=== PATIENT | male | born 1975 | race African-American/Black ===

== ENCOUNTER 2018-12-04 11:51 | Emergency (ER) | payer OTHER ==
[~2018-12-04] VITALS: Ht 180.3 cm; Wt 78.5 kg
--- NOTE | 2018-12-04 11:53 | NUR ---
PT BIBA BLS TO BED 5
[2018-12-04 11:55] VITALS: BP 150/103
--- NOTE | 2018-12-04 12:00 | NUR ---
43Y/M BIBA WITH C/O OF ANXIETY. PT STATES HE HAS BEEN OUT OF ANXIETY MEDICATION FOR 2 WKS. PT IS AAOX4, LAYING IN BED CALM AND RELAX AT THIS TIME, VSS, BED DOWN, BEDRAIL UP X 1, ER MD AWARE AND NOTIFIED OF PT STATUS. BS FIELD 117 ,BP FIELD 180/100 PMH: HTN,ANXIETY,SCHIZO RX: ZYPREXA,AMLODIPINE,ZOLOFT
--- NOTE | 2018-12-04 12:22 | NUR ---
Patient being evaluated by physician at bedside.
[2018-12-04] MEDS ORDERED: KETOROLAC 30 MG/ML VIAL IVP ONE (12:25)
[2018-12-04] MEDS ORDERED: NACL 0.9% 500 ML IV ONE (12:25)
--- NOTE | 2018-12-04 12:34 | NUR ---
LAB AT BEDSIDE
[2018-12-04 12:59] LABS: BASOPHILS % (AUTO) 0.6 % (0.0-2.0); EOSINOPHILS % (AUTO) 0.5 % (0.0-4.0); HEMATOCRIT 39.2 % (36-52); HEMOGLOBIN 12.6 g/dL (12.0-18.0); LYMPHOCYTES % (AUTO) 18.7 % (20.5-51.1); MEAN CORPUSCULAR HEMOGLOBIN 27 pg (27-31); MEAN CORPUSCULAR HGB CONC 32 g/dL (33-37); MEAN CORPUSCULAR VOLUME 83.9 fL (80-94); MONOCYTES # (AUTO) 0.6 K/uL (0.8-1.0); MONOCYTES % (AUTO) 11.1 % (1.7-9.3); NEUTROPHILS # (AUTO) 3.6 K/uL (1.8-7.7); NEUTROPHILS % (AUTO) 69.1 % (42.2-75.2); PLATELET COUNT (AUTO) 149 K/uL (140-450); RED BLOOD CELL COUNT(AUTO) 4.67 MIL/uL (4.20-6.10); RED CELL DISTRIBUTION WIDTH 14.8 % (11.6-13.7); WHITE BLOOD COUNT (AUTO) 5.2 K/uL (4.8-10.8)
[2018-12-04 13:08] LABS: ANION GAP 15.5 (8-16); CARBON DIOXIDE 21.9 mmol/L (21-32); CREATININE 3.7 mg/dL (0.7-1.3); POTASSIUM 4.4 mmol/L (3.5-5.1)
[2018-12-04 13:14] LABS: ALBUMIN 4.1 g/dL (3.4-5.0); TOTAL BILIRUBIN 0.4 mg/dL (0.0-1.0)
--- NOTE | 2018-12-04 13:25 | NUR ---
HOMELESS PACKET AND FOOD GIVEN TO PT UPON DISCHARGE.
[2018-12-04 13:26] VITALS: BP 145/100
--- NOTE | 2018-12-04 13:26 | NUR ---
Patient discharged with v/s stable. Written and verbal after care instructions given and explained. Patient alert, oriented and verbalized understanding of instructions. Ambulatory with steady gait. All questions addressed prior to discharge. ID band removed. Patient advised to follow up with PMD. Rx of cymbalta, zoloft amlodipine given. Patient educated on indication of medication including possible reaction and side effects. Opportunity to ask questions provided and answered.
--- NOTE | 2018-12-04 13:26 | NUR ---
pt refused to sign d/c paperwork
== END 2018-12-04 13:26 | disposition home or self-care (01) ==
LOC: MED 11:51
DX: F41.0 Panic disorder [episodic paroxysmal anxiety] (principal); G47.9 Sleep disorder, unspecified; I10 Essential (primary) hypertension; F20.9 Schizophrenia, unspecified
CPT/HCPCS: 36415; 80053; 85025; 96365; 99284; J1885; J7030; 96374